=== PATIENT | female | born 1960 | race Caucasian/White ===

== ENCOUNTER 2022-07-30 16:09 | Emergency (ER) | payer OTHER ==
[~2022-07-30] VITALS: Ht 157.5 cm; Wt 72.6 kg
[2022-07-30 16:13] VITALS: BP 250/123
--- NOTE | 2022-07-30 16:17 | NUR ---
61/F BIBA FROM DIALYSIS CENTER C/O ELEVATED BP OF 280 DURING DIALYSIS ACCOMPANIED BY VOMITING AND HEADACHE. PT NOW STATES NO LONGER HAS HEADACHE. PT GIVEN CLONIDINE 0.2 MG PO AT DIALYSIS CENTER AND VOMITED SOON AFTER. PT ABORTED DIALYSIS. ON WELCOME CENTER AGENT, AAO4. PMH: STAGE 5 KIDNEY DISEASE, DM, HTN, DIALYSIS (,)
--- NOTE | 2022-07-30 16:17 | NUR ---
PT BIBA ALS TO BED 9.
--- NOTE | 2022-07-30 16:38 | NUR ---
BLOOD DRAWN BY HAND CARVER
[2022-07-30] MEDS ORDERED: LABETALOL 20 MG/4 ML VIAL IVP ONE ×2 (16:40→17:55)
[2022-07-30 16:42] LABS: BASOPHILS % (AUTO) 0.8 % (0.0-2.0); EOSINOPHILS # (AUTO) 0.3 K/uL (0-0.4); EOSINOPHILS % (AUTO) 4.6 % (0.0-4.0); HEMATOCRIT 31.5 % (36-48); HEMOGLOBIN 10.9 g/dL (12.0-16.0); LYMPHOCYTES # (AUTO) 1.6 K/uL (2.5-16.5); LYMPHOCYTES % (AUTO) 27.5 % (20.5-51.1); MEAN CORPUSCULAR HEMOGLOBIN 33 pg (27-31); MEAN CORPUSCULAR HGB CONC 35 g/dL (33-37); MEAN CORPUSCULAR VOLUME 96.5 fL (80-94); MONOCYTES # (AUTO) 0.5 K/uL (0.8-1.0); MONOCYTES % (AUTO) 9.1 % (1.7-9.3); NEUTROPHILS # (AUTO) 3.3 K/uL (1.8-7.7); PLATELET COUNT (AUTO) 209 K/uL (140-450); RED BLOOD CELL COUNT(AUTO) 3.26 MIL/uL (4.20-5.40); RED CELL DISTRIBUTION WIDTH 13.2 % (11.6-13.7); WHITE BLOOD COUNT (AUTO) 5.7 K/uL (4.8-10.8)
--- NOTE | 2022-07-30 16:48 | NUR ---
XR AT BEDSIDE
--- NOTE | 2022-07-30 16:48 | NUR ---
IV ESTABLISHED MS SQL DEVELOPER BY EMS TO LEFT HAND WITH 20G.
[2022-07-30 17:07] LABS: ALBUMIN 3.9 g/dL (3.4-5.0); ANION GAP 12.2 (8-16); CREATININE 3.8 mg/dL (0.6-1.3); POTASSIUM 4.2 mmol/L (3.5-5.1); TOTAL BILIRUBIN 0.3 mg/dL (0.0-1.0)
[2022-07-30 17:12] LABS: MAGNESIUM 2.4 mg/dL (1.8-2.4)
[2022-07-30 17:45] LABS: PROTHROMBIN TIME 10.6 secs (10.8-13.4)
[2022-07-30 18:45] VITALS: BP 194/89
--- NOTE | 2022-07-30 18:50 | NUR ---
Patient discharged with v/s stable. Written and verbal after care instructions given and explained. Patient verbalized understanding. Ambulatory with steady gait. All questions addressed prior to discharge. Advised to follow up with PMD.
== END 2022-07-30 18:50 | disposition home or self-care (01) ==
LOC: MED 16:09
DX: I12.0 Hypertensive chronic kidney disease with stage 5 chronic kidney disease or end stage renal disease (principal); E11.22 Type 2 diabetes mellitus with diabetic chronic kidney disease; N18.6 End stage renal disease; R51.9 Headache, unspecified; Z99.2 Dependence on renal dialysis; Z20.822 Contact with and (suspected) exposure to COVID-19; Z98.890 Other specified postprocedural states
CPT/HCPCS: 36415; 71045; 80053; 83735; 83880; 84484; 85025; 85610; 87426; 93005; 96374; 96375; 99285; J3490; Q0092; 96376

== ENCOUNTER 2022-08-18 11:33 | Inpatient (IN) | payer OTHER ==
[~2022-08-18] VITALS: Ht 142.2 cm; Wt 61.2 kg
[2022-08-18 11:53] VITALS: BP 204/120
--- NOTE | 2022-08-18 12:04 | NUR ---
PATIENT W/C ASSISTED TO BED 6
[2022-08-18] MEDS ORDERED: ASPIRIN 325 MG TAB PO ONE (12:15)
[2022-08-18] MEDS ORDERED: NITROGLYCERIN 0.4 MG TAB SL ONE (12:15)
--- NOTE | 2022-08-18 12:20 | NUR ---
61 y/o male bib daughter for chest pain x 1 week. Per patient, she has had this chest pain intermittently for a week. Pain increased today accompanied with SOB, Nausea and Vomiting today. Patient has a Dialysis Cath to right upper chest. Medical History: HTN, DM, DIALYSIS (T,) NKDA
[2022-08-18 13:15] LABS: BASOPHILS % (AUTO) 0.2 % (0.0-2.0); EOSINOPHILS % (AUTO) 0.2 % (0.0-4.0); HEMOGLOBIN 10.7 g/dL (12.0-16.0); LYMPHOCYTES # (AUTO) 2.3 K/uL (2.5-16.5); LYMPHOCYTES % (AUTO) 15.4 % (20.5-51.1); MEAN CORPUSCULAR HEMOGLOBIN 34 pg (27-31); MEAN CORPUSCULAR HGB CONC 34 g/dL (33-37); MEAN CORPUSCULAR VOLUME 98.3 fL (80-94); MONOCYTES # (AUTO) 1.2 K/uL (0.8-1.0); MONOCYTES % (AUTO) 7.7 % (1.7-9.3); NEUTROPHILS # (AUTO) 11.6 K/uL (1.8-7.7); NEUTROPHILS % (AUTO) 76.5 % (42.2-75.2); PLATELET COUNT (AUTO) 338 K/uL (140-450); RED BLOOD CELL COUNT(AUTO) 3.16 MIL/uL (4.20-5.40); RED CELL DISTRIBUTION WIDTH 13.5 % (11.6-13.7); WHITE BLOOD COUNT (AUTO) 15.2 K/uL (4.8-10.8)
--- NOTE | 2022-08-18 13:22 | NUR ---
Dr. Hodgson evaluating patient at bedside.
[2022-08-18 13:42] LABS: ALBUMIN 3.8 g/dL (3.4-5.0); ANION GAP 20.9 (8-16); CARBON DIOXIDE 19.3 mmol/L (21-32); POTASSIUM 5.2 mmol/L (3.5-5.1); TOTAL BILIRUBIN 0.6 mg/dL (0.0-1.0)
[2022-08-18 13:52] LABS: CREATININE 7.2 mg/dL (0.6-1.3)
[2022-08-18 14:01] LABS: PROTHROMBIN TIME 10.3 secs (10.8-13.4)
[2022-08-18] MEDS ORDERED: NITROGLYCERIN 2% 1 GM PKT TP ONE (14:20)
[2022-08-18] MEDS ORDERED: ASPI-1749 PO (14:28)
[2022-08-18] MEDS ORDERED: INSU-1343 SQ (14:28)
[2022-08-18] MEDS ORDERED: NIFE30TE5 PO (14:28)
--- NOTE | 2022-08-18 14:28 | NUR ---
Med rec complete.
[2022-08-18] MEDS ORDERED: ZOLPIDEM 10 MG TAB PO PRN (15:10)
[2022-08-18] MEDS ORDERED: ONDANSETRON 4 MG/2 ML VIAL IVP PRN (15:10)
[2022-08-18] MEDS ORDERED: LORazepam 2 MG/ML VIAL IVP PRN (15:10)
[2022-08-18] MEDS ORDERED: DOCUSATE SODIUM 100 MG GELCAP PO PRN (15:10)
[2022-08-18] MEDS ORDERED: MAG SULF 2000 MG/WATER PREMIX 50 ML IV PRN (15:10)
[2022-08-18] MEDS ORDERED: MORPHINE SULFATE 2 MG/ML SYR IVP PRN (15:10)
[2022-08-18] MEDS ORDERED: DEXTROSE 50% 50 ML SYR IVP PRN (15:10)
[2022-08-18] MEDS ORDERED: PIPERACILLIN/TAZOBACTAM 2.25 GM in DEXTROSE 5% 50 ML IV SCH (15:30)
[2022-08-18] MEDS ORDERED: SODIUM ZIRCONIUM CYCLOSILICATE 10 GM POWD.PACK PO SCH (15:30)
--- NOTE | 2022-08-18 15:59 | NUR ---
Lab at bedside
[2022-08-18] MEDS ORDERED: PIPERACILLIN/TAZOBACTAM 2.25 GM VIAL IV ONE (16:22)
[2022-08-18] MEDS: BLOOD GLUCOSE MONITORING 1 DEV DEV FS SCH ×2 (16:54→21:14)
[2022-08-18] MEDS: ACETAMINOPHEN 325 MG TAB PO PRN (17:14)
--- NOTE | 2022-08-18 17:14 | NUR ---
PATIENT C/O 6/10 BACK PAIN, PATIENT REFUSED MORPHINE, MEDICATED WITH TYLENOL PER PRN ORDER.
--- NOTE | 2022-08-18 17:46 | NUR ---
Patient was offered her dinner tray. Patient is sitting up eating dinner.
--- NOTE | 2022-08-18 18:30 | NUR ---
Dr. Franklin, admitting doctor, evaluating patient at bedside.
--- NOTE | 2022-08-18 19:20 | NUR ---
Pt report given to GABBIE Mehta. Transfer of care at this time.
--- NOTE | 2022-08-18 19:30 | NUR ---
RESTING QUIETLY IN BED, NAD. CM = SR WITHOUT ECTOPY. PT DENIES PAIN OR DISCOMFORT AT THIS TIME
--- NOTE | 2022-08-18 20:28 | NUR ---
REPORT CALLED TO
--- NOTE | 2022-08-18 20:30 | NUR ---
TO 105A VIA GURNEY, ATTACHED TO CM ACCOMPANIED BY RN AND ERT
[2022-08-18 20:40] VITALS: BP 208/96
--- NOTE | 2022-08-18 20:40 | NUR ---
Patient's Plan of Care was discussed and reviewed with POLYSOMNOGRAPHIC TECHNICIAN: AVINASH BEACH
--- NOTE | 2022-08-18 20:40 | NUR ---
PATIENT ARRIVED VIA GURNEY ON OXYGEN X 3 LITERS FOR SOB. PATIENT COMPLAINED OF PAIN TO CHEST AND BACK. THE PAIN WAS DESCRIBED PRESSURED AND SHARP CHEST PAIN. CHARGE NURSE AND PRINTING TABLE WORKER WERE NOTIFIED. MD WAS NOTIFIED AND NEW ORDERS FOR MEDICATION WAS MADE. MEDICATIONS WERE VERIFIED AND GIVEN. NURSING WILL MONITOR FOR EFFECTIVENESS. [email or web address]
[2022-08-18] MEDS: NIFEdipine 10 MG CAPLF PO SCH (21:00)
[2022-08-18] MEDS: INSULIN LISPRO SLIDING SCALE 100 UNITS/ML VIAL SUBQ PRN (21:15)
--- NOTE | 2022-08-18 21:26 | NUR ---
CHARGE NURSE WAS NOTIFIED OF PATIENT BLOOD PRESSURE AT 203/90 THE RETAKEN 2 MINUTES AND 208/96. INSURANCE SALES EXECUTIVE MD WAS NOTIFIED AND NEW ORDERS TO STABILIZE BLOOD PRESSURE AND PAIN. CARE TRANSITION MGR WILL NOTIFIED THE RECYCLABLE MATERIALS SORTER FOR ORDERS TO DIALYSIS BECAUSE TODAY SHE WAS DUE. [email or web address]
[2022-08-18] MEDS: NITROGLYCERIN 0.4 MG TAB SL PRN ×2 (21:41→21:53)
--- NOTE | 2022-08-18 22:53 | NUR ---
PATIENT WAS TRANSFERRED TO [facility] FOR DIALYSIS ACCESS. ORDERS FOR HEMODIALYSIS WAS PLACED. CONSENT WAS SIGNED BY PATIENT FOR DIALYSIS. [email or web address]
[2022-08-19] VITALS (7 sets, daily range): BP systolic 149–207; BP diastolic 55–94
--- NOTE | 2022-08-19 | NUR ---
ZOSYN NOT ADMINISTERED PATIENT HAS ONGOING DIALYSIS.
--- NOTE | 2022-08-19 01:00 | NUR ---
PATIENT WAS ABLE TO RECEIVE HER MIDNIGHT DOSAGE OF ANTIBIOTICS BECAUSE DIALYSIS IS STILL GOING. [email or web address]
[2022-08-19] MEDS: ACETAMINOPHEN 325 MG TAB PO PRN ×2 (01:24→06:20)
--- NOTE | 2022-08-19 04:34 | NUR ---
PATIENT WAS ABLE TO SLEEP DURING THE NIGHT BUT BLOOD PRESSURE FOR 0400 WAS STILL NOTED 207/89 HR 89. NURSING WAS ABLE TO GIVE PRN. [email or web address]
[2022-08-19] MEDS ORDERED: PIPERACILLIN/TAZOBACTAM 2.25 GM VIAL IV ONE (04:49)
[2022-08-19] MEDS: hydrALAZINE 20 MG/ML VIAL IVP PRN ×2 (04:55→13:49)
[2022-08-19] MEDS: PIPERACILLIN/TAZOBACTAM 2.25 GM in DEXTROSE 5% 50 ML IV SCH ×5 (05:11→18:46)
[2022-08-19] MEDS ORDERED: POTASSIUM CHLORIDE 10 MEQ TABER PO PRN (06:00)
[2022-08-19] MEDS: BLOOD GLUCOSE MONITORING 1 DEV DEV FS SCH ×4 (06:41→20:58)
--- NOTE | 2022-08-19 07:05 | NUR ---
ENDORSED CARE TO MEAGHAN CARTWRIGHT, PATIENT WAS STABLE AT THIS TIME. [email or web address]
--- NOTE | 2022-08-19 07:05 | NUR ---
RECEIVED REPORT FROM CERTIFIED ACTIVITIES DIRECTOR NURSE FOR CONTINUITY OF CARE. PT STABLE AT THIS TIME.
[2022-08-19 07:21] LABS: BASOPHILS % (AUTO) 0.3 % (0.0-2.0); EOSINOPHILS % (AUTO) 0.2 % (0.0-4.0); HEMATOCRIT 28.4 % (36-48); HEMOGLOBIN 9.7 g/dL (12.0-16.0); LYMPHOCYTES # (AUTO) 1.1 K/uL (2.5-16.5); LYMPHOCYTES % (AUTO) 16.5 % (20.5-51.1); MEAN CORPUSCULAR HEMOGLOBIN 34 pg (27-31); MEAN CORPUSCULAR HGB CONC 34 g/dL (33-37); MEAN CORPUSCULAR VOLUME 98.5 fL (80-94); MONOCYTES # (AUTO) 0.6 K/uL (0.8-1.0); MONOCYTES % (AUTO) 9.2 % (1.7-9.3); NEUTROPHILS % (AUTO) 73.8 % (42.2-75.2); PLATELET COUNT (AUTO) 247 K/uL (140-450); RED BLOOD CELL COUNT(AUTO) 2.88 MIL/uL (4.20-5.40); RED CELL DISTRIBUTION WIDTH 13.6 % (11.6-13.7); WHITE BLOOD COUNT (AUTO) 6.8 K/uL (4.8-10.8)
[2022-08-19 07:43] LABS: ANION GAP 15.1 (8-16); CARBON DIOXIDE 27.2 mmol/L (21-32); POTASSIUM 4.3 mmol/L (3.5-5.1)
[2022-08-19 08:24] LABS: CREATININE 4.2 mg/dL (0.6-1.3)
[2022-08-19] MEDS ORDERED: ASPIRIN 81 MG TAB.CHEW PO SCH (09:00)
[2022-08-19] MEDS: NIFEdipine 10 MG CAPLF PO SCH (09:06)
--- NOTE | 2022-08-19 09:38 | NUR ---
PATIENT HAS BEEN SCREENED AND CATEGORIZED MODERATE NUTRITION RISK. PATIENT WILL BE SEEN WITHIN 3-5 DAYS OF ADMISSION. REVIEWED BY BRIDGET BETANCOURT RD
--- NOTE | 2022-08-19 11:19 | NUR ---
DC PLANNIN YRS OLD FEMALE PATIENT WAS ADMITTED FROM HOME WITH A DX OF CHEST PAIN. PATIENT HAS A HX OF ESRD ON HD TTHS, HTN, AND DM. TROP 172, 273, WBC 15.2 B/C 50/4.2 CXR SHOWED CARDIOMEGALY WITH PULMONARY VASCULAR CONGESTION AND INTERSTITIAL EDEMA. RAPID COVID TEST NEGATIVE. ADMINISTERED IV ABX ZOSYN AND CONTINUED HOME MEDS. CONSULTED WITH CARDIO AND NEPHRO. PER ATTENDING PT IS STABLE FOR TRANSFER TO [facility]. FAXED THE REQUEST TO [phone]. CM TO FOLLOW
[2022-08-19] MEDS ORDERED: hydrALAZINE 20 MG/ML VIAL IVP PRN (15:15)
[2022-08-19] MEDS ORDERED: ATORVASTATIN 80 MG TAB PO SCH (15:15)
[2022-08-19] MEDS ORDERED: HEPARIN PER PHARMACY MC PRN (15:15)
[2022-08-19] MEDS ORDERED: carvediloL 12.5 MG TAB ONE (15:38)
[2022-08-19] MEDS ORDERED: carvediloL 12.5 MG TAB PO SCH ×2 (16:00→21:00)
[2022-08-19] MEDS ORDERED: hePARIN / DEXT 5% PREMIX 250 ML IV SCH (16:00)
--- NOTE | 2022-08-19 18:10 | NUR ---
[facility] CALLED TO GIVE US BED NUMBER, ACCEPTING PHYSICIAN, TIME OF TRANSPORT AND NUMBER TO CALL REPORT TO. NOTIFIED FAMILY OF TIME AND LOCATION THEIR LOVED ONE WILL BE TRANSFERRED TO.
--- NOTE | 2022-08-19 19:15 | NUR ---
ENDORSED PATIENT TO BEDSPREAD CUTTER HAND NURSE FOR CONTINUITY OF CARE. PT STABLE AT THIS TIME.
--- NOTE | 2022-08-19 19:30 | NUR ---
RECEIVED REPORT FROM DAY SHIFT NURSE FOR CONTINUITY OF CARE. PT A/A/O X 4, MAURITIAN SPEAKING, RESTING IN BED. FAMILY AT BEDSIDE. ON 3L NC, BREATHING EVEN AND UNLABORED.NO S/SX OF DISTRESS NOTED. IV ON L AC G20,R FA G24. HEPARIN RUNNING ON L AC AT 700UNITS/HR ALL PRECAUTIONS IN PLACE. CALL LIGHT WITHIN REACH. WILL CONTINUE TO MONITOR
[2022-08-19] MEDS: INSULIN LISPRO SLIDING SCALE 100 UNITS/ML VIAL SUBQ PRN (20:59)
--- NOTE | 2022-08-19 22:00 | NUR ---
REPORT GIVEN TO RUDDY CARTWRIGHT IN [facility]. PT IS GOING TO ROOM 322.
--- NOTE | 2022-08-19 22:40 | NUR ---
PT WAS PICKED UP BY [facility]. PT IS STABLE. NO S/SX OF DISTRESS UPON DISCHARGE.
[2022-08-20] MEDS ORDERED: NIFEdipine 30 MG TABER PO SCH (09:00)
== END 2022-08-19 22:40 | disposition short-term general hospital (02) | DRG 682 ==
LOC: MED 11:33 → MTU 15:06
PROVIDERS: ADMIT Family Medicine; ATTEND Family Medicine
PROC: 5A1D70Z Performance of Urinary Filtration, Intermittent, Less than 6 Hours Per Day (ICD-10-PCS; principal; 2022-08-18)
PROC: 5A1D70Z Performance of Urinary Filtration, Intermittent, Less than 6 Hours Per Day (ICD-10-PCS; 2022-08-19)
DX: I12.0 Hypertensive chronic kidney disease with stage 5 chronic kidney disease or end stage renal disease (principal); I21.A1 Myocardial infarction type 2; N17.0 Acute kidney failure with tubular necrosis; N18.6 End stage renal disease; I16.1 Hypertensive emergency; E87.1 Hypo-osmolality and hyponatremia; E11.22 Type 2 diabetes mellitus with diabetic chronic kidney disease; D53.9 Nutritional anemia, unspecified; E83.51 Hypocalcemia; Z20.822 Contact with and (suspected) exposure to COVID-19; E87.5 Hyperkalemia; D72.829 Elevated white blood cell count, unspecified; Z79.82 Long term (current) use of aspirin
CPT/HCPCS: 36415; 71045; 80048; 80053; 82948; 83735; 83880; 84484; 85025; 85610; 85730; 87040; 87081; 90935; 96365; 99291; J0360; J1644; J1815; J2270; J2405; J2543; J7060; Q0092

== ENCOUNTER 2022-12-23 20:45 | Emergency (ER) | payer OTHER ==
[~2022-12-23] VITALS: Ht 160 cm; Wt 58.1 kg
[~2022-12-23 20:45] MED LIST: ASPI-1749 PO; INSU-1343 SQ; NIFE30TE5 PO
[2022-12-23 20:57] VITALS: BP 132/104; PULSE 113; RESP 18; TEMP 97.4; O2SAT 78
--- NOTE | 2022-12-23 20:57 | NUR ---
Pt to bed 10
--- NOTE | 2022-12-23 21:00 | NUR ---
O2 sat in the 60s in room air, pt placed on 15L o2 via NRB and RT by bedside at this time.
--- NOTE | 2022-12-23 21:10 | NUR ---
ERMD by bedside at this time evaluating patient
--- NOTE | 2022-12-23 21:15 | NUR ---
Pt placed on Bipap by RT
[2022-12-23] MEDS ORDERED: FUROSEMIDE 100 MG/10 ML VIAL IVP ONE (21:20)
[2022-12-23] MEDS ORDERED: ASPIRIN 325 MG TAB PO ONE (21:25)
[2022-12-23 21:32] VITALS: BP 151/70; PULSE 98; RESP 26; O2SAT 100; O2SAT 99
[2022-12-23 21:43] LABS: HEMATOCRIT 27.1 % (36-48); HEMOGLOBIN 9.5 g/dL (12.0-16.0); MEAN CORPUSCULAR HEMOGLOBIN 33 pg (27-31); MEAN CORPUSCULAR HGB CONC 35 g/dL (33-37); MEAN CORPUSCULAR VOLUME 94.4 fL (80-94); PLATELET COUNT (AUTO) 211 K/uL (140-450); RED BLOOD CELL COUNT(AUTO) 2.87 MIL/uL (4.20-5.40); RED CELL DISTRIBUTION WIDTH 13.6 % (11.6-13.7)
[2022-12-23 21:46] LABS: MAGNESIUM 2.1 mg/dL (1.8-2.4); PHOSPHORUS 4.4 mg/dL (2.5-4.9)
[2022-12-23 21:54] LABS: APPEARANCE,URINE CLEAR (CLEAR); BILIRUBIN,URINE NEGATIVE (NEGATIVE); BLOOD, URINE TRACE-I (NEGATIVE); COLOR,URINE YELLOW (YELLOW); LEUKOCYTE ESTERASE ,URINE NEGATIVE (NEGATIVE); NITRITE, URINE NEGATIVE (NEGATIVE); PH,URINE 7.5 (5.0-9.0); UGLUCOSE 1+ (NEGATIVE)
[2022-12-23] MEDS ORDERED: DOXYCYCLINE 100 MG in DEXTROSE 5% 100 ML IV ONE (22:00)
[2022-12-23 22:01] LABS: BASOPHILS % (MANUAL) 0 % (0-2); EOSINOPHILS % (MANUAL) 5 % (0-4); LYMPHOCYTES % (MANUAL) 27 % (20-46); MONOCYTES % (MANUAL) 4 % (5-12)
[2022-12-23] MEDS ORDERED: cefTRIAXone 1,000 MG VIAL ONE (22:04)
[2022-12-23] MEDS ORDERED: DOXYCYCLINE 100 MG VIAL IV ONE (22:36)
[2022-12-23 22:44] LABS: ALBUMIN 3.2 g/dL (3.4-5.0); ANION GAP 15.6 (8-16); CARBON DIOXIDE 27.2 mmol/L (21-32); POTASSIUM 4.8 mmol/L (3.5-5.1); TOTAL BILIRUBIN 0.3 mg/dL (0.0-1.0)
[2022-12-23 22:46] LABS: CREATININE 4.8 mg/dL (0.6-1.3)
[2022-12-23 23:12] VITALS: BP 225/86; PULSE 88; O2SAT 99
--- NOTE | 2022-12-23 23:35 | NUR ---
Pt with episodes of muscle spasms on left leg, per pt, new onset. denies any pain. ERMD was notified.
--- NOTE | 2022-12-23 23:45 | NUR ---
DR. TREJO CALLS BACK TO SPEAK WITH DR. COATES
[2022-12-23] MEDS ORDERED: NITROGLYCERIN 50 MG/D5W PREMIX 250 ML IV ONE (23:50)
--- NOTE | 2022-12-23 23:58 | NUR ---
WEANED PT OFF FROM BiPAP TO 2L NC. SPO2 98%. NO INCREASE OF WOB AT THIS TIME. WILL CONTINUE TO MONITOR PT.
[2022-12-24] MEDS ORDERED: hydrALAZINE 20 MG/ML VIAL IVP ONE ×2 (01:05→03:40)
[2022-12-24] MEDS ORDERED: NIFEdipine 30 MG TABER PO ONE (01:05)
--- NOTE | 2022-12-24 01:35 | NUR ---
Spoke with Elzbieta CARTWRIGHT from [facility] and updated [facility] regarding patients vitals.
--- NOTE | 2022-12-24 02:29 | NUR ---
Pt c/o 5/10 left leg pain that per pt is due to muscle spasms, ERMD was made aware.
[2022-12-24] MEDS ORDERED: MORPHINE SULFATE 4 MG/ML SYR IVP ONE (02:30)
--- NOTE | 2022-12-24 02:38 | NUR ---
Pt refused ordered morphine, ERMD made aware
--- NOTE | 2022-12-24 03:42 | NUR ---
CALL BACK FROM [facility] WITH TRANSFER INFORMATION. PT GOING TO [facility], ROOM 545. REPORT CALL TO GILBERTO CARTWRIGHT AT [phone]. TRANSPORT WILL BE HERE AT 0430, [facility]
--- NOTE | 2022-12-24 03:54 | NUR ---
Patient to be transferred to [facility] Room 545. Receiving facility has accepting physician and available space. ER physician has signed transfer form. Patient or responsible constitution party has agreed to transfer and signed form. Patient belongings inventoried and will be sent with patient. Copy of nursing notes, lab reports, EKG, Physicians Orders and X-rays to be sent with patient. Report called to Billie CARTWRIGHT at receiving facility. [facility] ambulance service has been called for transfer. ETA is 0430.
[2022-12-24 04:37] VITALS: BP 159/66; PULSE 108; RESP 11; TEMP 98.2; O2SAT 100
--- NOTE | 2022-12-24 04:37 | NUR ---
Patient picked up by can repairer and EMT from [facility] for transfer of care to [facility].
== END 2022-12-24 04:37 | disposition short-term general hospital (02) ==
LOC: MED 20:45
DX: A41.9 Sepsis, unspecified organism (principal); Z20.822 Contact with and (suspected) exposure to COVID-19; R65.20 Severe sepsis without septic shock; J96.01 Acute respiratory failure with hypoxia; I13.0 Hypertensive heart and chronic kidney disease with heart failure and stage 1 through stage 4 chronic kidney disease, or unspecified chronic kidney disease; I50.9 Heart failure, unspecified; E11.22 Type 2 diabetes mellitus with diabetic chronic kidney disease; N18.9 Chronic kidney disease, unspecified; I16.0 Hypertensive urgency; E87.1 Hypo-osmolality and hyponatremia; E87.20 Acidosis, unspecified; R77.8 Other specified abnormalities of plasma proteins; Z79.4 Long term (current) use of insulin; Z79.899 Other long term (current) drug therapy
CPT/HCPCS: 36415; 36600; 71045; 80053; 81003; 82803; 83605; 83735; 83880; 84100; 84484; 85025; 87040; 87426; 87804; 93005; 94660; 96365; 96366; 96367; 96375; 96376; 99291; J0360; J0696; J1940; J3490; J7060; J2270

== ENCOUNTER 2022-12-28 18:18 | Inpatient (IN) | payer OTHER ==
[~2022-12-28] VITALS: Ht 157.5 cm; Wt 63.1 kg
--- NOTE | 2022-12-28 18:30 | NUR ---
PATIENT WHEELCHAIR ASSIST TO ER BED 05
[2022-12-28 18:31] VITALS: BP 210/69; PULSE 72; RESP 30; TEMP 98; O2SAT 88
[2022-12-28 18:46] VITALS: PULSE 72; RESP 36; O2SAT 96
--- NOTE | 2022-12-28 18:46 | NUR ---
62 YO F BIB DAUGHTER, PT PRESENTS W/SOB TODAY. NAUSEA PRESENT, NO VOMITING. PT STATES SHE WAS SEEN HERE IN ED 2DAYS AGO AND TRANSFERED TO [place] FOR FUTHER CARE ON BIPAP. SAFETY MAINTAINED. HX: CHF, diabetes, hypertension, ESRD
[2022-12-28] MEDS ORDERED: ONDANSETRON 4 MG/2 ML VIAL IVP ONE (19:05)
[2022-12-28] MEDS ORDERED: NITROGLYCERIN 0.4 MG TAB SL ONE (19:10)
[2022-12-28 19:16] LABS: BASOPHILS % (AUTO) 0.6 % (0.0-2.0); EOSINOPHILS # (AUTO) 0.2 K/uL (0-0.4); EOSINOPHILS % (AUTO) 2.2 % (0.0-4.0); HEMATOCRIT 25.2 % (36-48); HEMOGLOBIN 8.9 g/dL (12.0-16.0); LYMPHOCYTES # (AUTO) 1.6 K/uL (2.5-16.5); LYMPHOCYTES % (AUTO) 21.9 % (20.5-51.1); MEAN CORPUSCULAR HEMOGLOBIN 33 pg (27-31); MEAN CORPUSCULAR HGB CONC 35 g/dL (33-37); MEAN CORPUSCULAR VOLUME 94.7 fL (80-94); MONOCYTES # (AUTO) 0.6 K/uL (0.8-1.0); MONOCYTES % (AUTO) 8.7 % (1.7-9.3); NEUTROPHILS % (AUTO) 66.6 % (42.2-75.2); PLATELET COUNT (AUTO) 273 K/uL (140-450); RED BLOOD CELL COUNT(AUTO) 2.66 MIL/uL (4.20-5.40); WHITE BLOOD COUNT (AUTO) 7.5 K/uL (4.8-10.8)
--- NOTE | 2022-12-28 19:19 | NUR ---
NITRO SUBLINGUAL GIVEN, NO VIAL AVAILABLE IN ED, PICKED UP NITRO FROM ICU. UNABLE TO SCAN VIAL.
--- NOTE | 2022-12-28 19:24 | NUR ---
SECOND NITRO SUBLINGUAL GIVEN. UNABLE TO SCAN, NITRO PICKED UP FROM ICU.
--- NOTE | 2022-12-28 19:26 | NUR ---
TRANSFER OF CARE TO JAYME CARTWRIGHT
--- NOTE | 2022-12-28 19:29 | NUR ---
Pt denies CP after Nitroglycerin x2 sublingual tablets. Appears in no acute distress. Daughter is at bedside.
[2022-12-28] MEDS ORDERED: NITROGLYCERIN 50 MG/D5W PREMIX 250 ML IV ONE (20:00)
--- NOTE | 2022-12-28 20:00 | NUR ---
MD Campbell at bedside re-evaluating pt; MD Campbell made aware of pt c/o nausea still and elevated BP (SBP 200's). New orders in place.
[2022-12-28 20:12] LABS: ALBUMIN 3.2 g/dL (3.4-5.0); ANION GAP 17.6 (8-16); CARBON DIOXIDE 22.2 mmol/L (21-32); POTASSIUM 5.8 mmol/L (3.5-5.1); TOTAL BILIRUBIN 0.3 mg/dL (0.0-1.0)
--- NOTE | 2022-12-28 20:20 | NUR ---
Nitroglycerin drip started as ordered by MD Campbell; Start dose @ 5 mcg/min; to titrate as ordered per MD orders/protocol.
[2022-12-28 20:33] LABS: CREATININE 7.2 mg/dL (0.6-1.3)
--- NOTE | 2022-12-28 22:08 | NUR ---
MD Leyva at bedside re-assessing pt. MD Blancas made aware of SBP in the 190's/200's and is currently receiving max dose for Nitroglycerin drip.
[2022-12-28 22:15] VITALS: PULSE 67; O2SAT 96
--- NOTE | 2022-12-28 22:24 | NUR ---
Per MD Leyva, pt to be admitted here in ICU; pt will not be transferred to [place].
[2022-12-28] MEDS ORDERED: ONDANSETRON 4 MG/2 ML VIAL IVP PRN (22:25)
[2022-12-28] MEDS ORDERED: LORazepam 2 MG/ML VIAL IVP PRN (22:25)
[2022-12-28] MEDS ORDERED: HYDROcodone/APAP 5/325 MG 1 TAB TAB PO PRN (22:25)
[2022-12-28] MEDS ORDERED: MORPHINE SULFATE 2 MG/ML SYR IVP PRN (22:25)
[2022-12-28] MEDS ORDERED: hydrALAZINE 20 MG/ML VIAL IVP STA (22:28)
--- NOTE | 2022-12-28 22:36 | NUR ---
Hydralazine 10 mg via IVP given as ordered for bp management; vs being monitored. Pt denies any CP;SOB at this time. at bedside.
--- NOTE | 2022-12-28 22:50 | NUR ---
RECEIVED CALL FROM JAYME CARTWRIGHT, IN ER. PATIENT WILL BE TRANSFERRING TO ICU BED 5
--- NOTE | 2022-12-28 22:52 | NUR ---
Pt daughter at bedside; will be taking all belongings home with her.
[2022-12-28 23:00] LABS: PROTHROMBIN TIME 10.4 secs (10.8-13.4)
[2022-12-28 23:07] VITALS: PULSE 97; RESP 23; O2SAT 98
--- NOTE | 2022-12-28 23:07 | NUR ---
Patient will be admitted to care of MD Padilla. Admited to ICU. Will go to room ICU5. Report given to GABBIE Cedeño.
--- NOTE | 2022-12-28 23:26 | NUR ---
2318 TRANSFERRED PATIENT TO ICU BED 5 ON BIPAP. SETTINGS 10/ RR 16 FIO2 100%. DR EVANGELISTA CHANGED BIPAP ORDER TO IPAP 10/ RR 12 AND FIO2 IS AT 30%. SATS ARE 100% ON BIPAP. PLACED CALL LIGHT BY PATIENT. NO COMPLICATIONS OCCURRED ON TRANSPORT
--- NOTE | 2022-12-28 23:57 | NUR ---
PHONE CALL RECEIVED FROM RADIOLOGY, PATIENT HAS PENDING ORDER FOR VQ SCAN; TECH WHO WILL BE PERFORMING PROCEDURE IS ON THE WAY NOW TO THE HOSPITAL. PROCEDURE WILL BE PERFORMED AT BEDSIDE
[2022-12-29] VITALS (20 sets, daily range): BP systolic 123–205; BP diastolic 59–92; PULSE 66–101; RESP 14–68; TEMP 97.1–97.9; O2SAT 93–100
--- NOTE | 2022-12-29 00:15 | NUR ---
SUPERVISOR SHIP MAINTENANCE SERVICES ARRIVED AT BEDSIDE TO PERFORM NUCLEAR MEDICINE SCAN
--- NOTE | 2022-12-29 00:29 | NUR ---
0020 PATIENT TAKEN OFF BIPAP TO HAVE A VQ SCAN DONE. PATIENT WANTS TO TAKE A BREAK FROM BIPAP. PLACED PATIENT ON 2LNC. NO SOB NOTED AT THIS TIME.
[2022-12-29] MEDS: IPRATROPIUM 0.02% 0.5 MG/2.5 ML NEBU INH SCH ×4 (01:03→19:00)
[2022-12-29] MEDS: ALBUTEROL 0.083% 2.5 MG/3 ML NEBU INH SCH ×4 (01:04→19:00)
--- NOTE | 2022-12-29 01:34 | NUR ---
0103 HHNTX STARTED AND PLACED PATIENT BACK ON 3LNC. PATIENT DOES NOT NEED BIPAP AT THIS TIME NO SOB NOTED. BREATH SOUNDS ARE CLEAR. BIPAP STANDBY AND CALL LIGHT WITH IN REACH
--- NOTE | 2022-12-29 02:15 | NUR ---
SCD'S APPLIED TO BILATERAL LOWER EXTREMITIES PER MD ORDERS
[2022-12-29] MEDS: NITROGLYCERIN 50 MG/D5W PREMIX 250 ML IV PRN ×2 (05:11→09:46)
--- NOTE | 2022-12-29 05:30 | NUR ---
PATIENT IS MAXED ON NITROGLYCERIN DRIP, ON-CALL CAREER AND GUIDANCE COUNSELOR HAS BEEN PAGED TO OBTAIN NEW ORDERS FOR PATIENT
[2022-12-29 05:31] LABS: BASOPHILS % (AUTO) 0.6 % (0.0-2.0); EOSINOPHILS # (AUTO) 0.1 K/uL (0-0.4); HEMATOCRIT 21.7 % (36-48); HEMOGLOBIN 7.7 g/dL (12.0-16.0); LYMPHOCYTES % (AUTO) 27.4 % (20.5-51.1); MEAN CORPUSCULAR HEMOGLOBIN 33 pg (27-31); MEAN CORPUSCULAR HGB CONC 36 g/dL (33-37); MONOCYTES # (AUTO) 0.7 K/uL (0.8-1.0); MONOCYTES % (AUTO) 10.3 % (1.7-9.3); NEUTROPHILS # (AUTO) 4.3 K/uL (1.8-7.7); NEUTROPHILS % (AUTO) 59.7 % (42.2-75.2); PLATELET COUNT (AUTO) 238 K/uL (140-450); RED BLOOD CELL COUNT(AUTO) 2.31 MIL/uL (4.20-5.40); RED CELL DISTRIBUTION WIDTH 13.9 % (11.6-13.7); WHITE BLOOD COUNT (AUTO) 7.2 K/uL (4.8-10.8)
--- NOTE | 2022-12-29 05:40 | NUR ---
RECEIVED CALL FROM DR. NORRIS, PROVIDED UPDATE REGARDING ELEVATED BLOOD PRESSURE NEW ORDERS RECEIVED FOR LABETOL IV PUSH Q 4HRS.
[2022-12-29] MEDS ORDERED: LABETALOL 20 MG/4 ML VIAL IVP ONE (05:50)
[2022-12-29 06:09] LABS: ALBUMIN 2.9 g/dL (3.4-5.0); ANION GAP 17.1 (8-16); CARBON DIOXIDE 22.9 mmol/L (21-32); CREATININE 7.4 mg/dL (0.6-1.3); MAGNESIUM 2.3 mg/dL (1.8-2.4); TOTAL BILIRUBIN 0.4 mg/dL (0.0-1.0)
--- NOTE | 2022-12-29 07:02 | NUR ---
TRANSFER OF CARE TO DAY SHIFT, ENDORSED PATIENT TO ANGELLA. CALL LIGHT ON BED WITHIN REACH FOR PATENT
[2022-12-29] MEDS: LABETALOL 20 MG/4 ML VIAL IVP PRN ×2 (07:11→14:45)
--- NOTE | 2022-12-29 07:11 | NUR ---
ADMINISTERED LABETALOL PER MD ORDERS
--- NOTE | 2022-12-29 07:30 | NUR ---
Report received from assistant casino shift manager GABBIE Cedeño. Pt is Yolis able to make needs known. Patients primary language is Romansh. Patient has 20G AC with no redness and ecchymosis on insertion site with Nitroglycerin infusing at 200 mcg/min. Lungs are clear to auscultation with 2L on nasal cannula. Abdomen is soft upon palpation. Currently NPO. Patients skin intact with ecchymosis noted on the left AC. SCDs are in place. Patient with no s/sx of pain or discomfort. No acute distress. Will continue to follow plan of care. Addendum: 12/29/22 at 0910 by MARK GRAY RN Patient has Right Triston catheter. Dressing is dry and intact.
[2022-12-29] MEDS ORDERED: SODIUM BICARBONATE 8.4% 50 MEQ in DEXTROSE 5% 1,000 ML IV SCH (08:45)
[2022-12-29] MEDS ORDERED: CALCIUM GLUCONATE 10% 1,000 MG in NACL 0.9% 50 ML IV ONE (08:45)
--- NOTE | 2022-12-29 08:57 | NUR ---
Reached out to Dr. Fisher regarding patients potassium level of 6.0 and Sodium of 122. Per MD Fisher start patient on calcium gluconate, dextrous 50%, and regular insulin. Will continue to follow plan of care.
--- NOTE | 2022-12-29 09:07 | NUR ---
PATIENT HAS BEEN SCREENED AND CATEGORIZED MODERATE NUTRITION RISK. PATIENT WILL BE SEEN WITHIN 3-5 DAYS OF ADMISSION. 12/31/22-01/02/[address]
[2022-12-29] MEDS ORDERED: INSULIN REGULAR, HUMAN 100 UNIT/ML VIAL SUBQ SCH (09:20)
[2022-12-29] MEDS: ASPIRIN 81 MG TAB.CHEW PO SCH (09:22)
[2022-12-29] MEDS ORDERED: ACETAMINOPHEN 325 MG TAB PO PRN (09:25)
[2022-12-29] MEDS ORDERED: POTASSIUM CHLORIDE 10 MEQ TABER PO PRN (09:25)
[2022-12-29] MEDS ORDERED: ALBUTEROL SULFATE/IPRATROPIU 3 ML SOL IH PRN (09:25)
[2022-12-29] MEDS: NACL 0.9% 1,000 ML IV SCH ×2 (09:25→13:19)
[2022-12-29] MEDS ORDERED: HYDROcodone/APAP 7.5/325 MG 1 TAB PO PRN (09:25)
[2022-12-29] MEDS ORDERED: ONDANSETRON 4 MG/2 ML VIAL IVP PRN (09:25)
[2022-12-29] MEDS ORDERED: MAG SULF 2000 MG/WATER PREMIX 50 ML IV PRN (09:25)
[2022-12-29] MEDS ORDERED: SODIUM BICARBONATE 8.4% PFS 50 MEQ/50 ML SYR IVP SCH (09:30)
[2022-12-29] MEDS ORDERED: SODIUM CHLORIDE IV SCH (09:45)
[2022-12-29] MEDS ORDERED: CALCIUM GLUCONATE 1 GM/50 ML IV SCH (09:45)
[2022-12-29] MEDS ORDERED: SODIUM POLYSTYRENE 15 GM/60 ML UDBTL PO SCH (09:45)
--- NOTE | 2022-12-29 09:50 | NUR ---
Greaser Helper Dr. Byrne rounded at patient bedside. Patient is a dialysis patient that needs to get dialyzed. Patient is AOx4 MD explain and made patient aware that she needs to get dialyzed. Per patient she stated "kvng byrne" regarding the dialysis.
[2022-12-29] MEDS ORDERED: DEXTROSE 50% 50 ML SYR IVP ONE (09:55)
--- NOTE | 2022-12-29 10:00 | NUR ---
Dialysis nurse GABBIE Pineda started patient on dialysis. Patients with no acute distress or SOB noted.
[2022-12-29 10:13] LABS: BASOPHILS % (AUTO) 0.2 % (0.0-2.0); EOSINOPHILS # (AUTO) 0.1 K/uL (0-0.4); EOSINOPHILS % (AUTO) 1.8 % (0.0-4.0); HEMOGLOBIN 7.4 g/dL (12.0-16.0); LYMPHOCYTES # (AUTO) 1.3 K/uL (2.5-16.5); MEAN CORPUSCULAR HEMOGLOBIN 33 pg (27-31); MEAN CORPUSCULAR HGB CONC 35 g/dL (33-37); MEAN CORPUSCULAR VOLUME 94.1 fL (80-94); MONOCYTES # (AUTO) 0.7 K/uL (0.8-1.0); MONOCYTES % (AUTO) 10.6 % (1.7-9.3); NEUTROPHILS # (AUTO) 4.5 K/uL (1.8-7.7); NEUTROPHILS % (AUTO) 67.4 % (42.2-75.2); PLATELET COUNT (AUTO) 231 K/uL (140-450); RED BLOOD CELL COUNT(AUTO) 2.23 MIL/uL (4.20-5.40); RED CELL DISTRIBUTION WIDTH 13.6 % (11.6-13.7); WHITE BLOOD COUNT (AUTO) 6.7 K/uL (4.8-10.8)
[2022-12-29 10:17] LABS: ANION GAP 14.8 (8-16); CARBON DIOXIDE 25.1 mmol/L (21-32); POTASSIUM 5.9 mmol/L (3.5-5.1)
--- NOTE | 2022-12-29 10:22 | NUR ---
Abnormal labs: Na 121, K 5.9, BUN 72. Dr. Bullard made aware. Pt. is currently being dialyzed. No new orders received.
--- NOTE | 2022-12-29 10:26 | NUR ---
New Echo-Cardiogram order cancelled by Dr. Safia OSORIO. Pt. had Echo done on 08-19-2022. NO new test needed. See report from 08-19-22 in pt.'s physical chart for details.
[2022-12-29 10:33] LABS: CHOL/HDL RATIO 2.5 (1-4.5); FREE T4 (FREE THYROXINE) 1.25 ng/dL (0.76-1.46); MAGNESIUM 2.3 mg/dL (1.8-2.4); PHOSPHORUS 5.2 mg/dL (2.5-4.9); THYROID STIMULATING HORMONE 2.68 uIU/mL (0.34-3.74)
--- NOTE | 2022-12-29 10:34 | NUR ---
Lab [facility] called regarding patients elevated Troponin Level of 1503. Notified MD Baig regarding troponin levels waiting for reply.
--- NOTE | 2022-12-29 10:40 | NUR ---
MD Lizama reached out regarding troponin levels per "no recs for now."
--- NOTE | 2022-12-29 10:47 | NUR ---
FNS CONSULT HAS BEEN RECEIVED FOR NEW RENAL FAILURE. PATIENT HAS BEEN RE-SCREENED HIGH RISK AND WILL BE SEEN WITHIN 1-2 DAYS OF RECEIVING THE FNS CONSULT. ELVIRA DECKER RD
--- NOTE | 2022-12-29 10:50 | NUR ---
Cee SHARPE and Cesilia SHARPE research program intern rounded at patients bedside. Asked patients questions regarding diet that she has at home. Patient AOx4 able to answer questions.
--- NOTE | 2022-12-29 11:07 | NUR ---
NITRO DRIP STOPPED FOR NOW PER DR. CRUZ, DURING DYALISIS OCCURING NOW. BP. 105/55, HR 72, SPO2 99. DIALYSIS IN PROGRESS WITH RN AT BEDSIDE. PT. WITH NO ACUTE DISTRESS. NO SOB. WILL CONT TO MONITOR.
--- NOTE | 2022-12-29 11:25 | NUR ---
Dr. Fisher rounded at patients bedside. Instructed for patient to have labs drawn after dialysis.
[2022-12-29] MEDS ORDERED: BLOOD GLUCOSE MONITORING 1 DEV DEV FS SCH (11:30)
--- NOTE | 2022-12-29 11:30 | NUR ---
MD Fisher wants labs to be drawn after dialysis, wait to administer NS.
[2022-12-29] MEDS ORDERED: ALBUTEROL SULFATE/IPRATROPIU 3 ML SOL IH SCH (12:00)
[2022-12-29] MEDS ORDERED: DEXTROSE 50% 50 ML SYR IVP PRN (12:10)
[2022-12-29] MEDS ORDERED: INSULIN LISPRO SLIDING SCALE 100 UNITS/ML VIAL SUBQ PRN (12:10)
--- NOTE | 2022-12-29 13:27 | NUR ---
12/29/22 RD INITIAL ASSESSMENT COMPLETED PLEASE REFER TO NUTRITION ASSESSMENT UNDER CARE ACTIVITY FOR ESTIMATED NUTRITIONAL NEEDS. 1. CONTINUE RENAL AND CCHO 60 GRAM DIET TOLERATED 2. RD ENCOURAGES PATIENT TO CONTINUE WITH RENAL DIET AND NUTRITION EDUCATION GIVEN AT THE HOSPITAL ONCE SHE LEAVES 3. RD WILL CONTINUE TO MONITOR NUTRITION RELATED LABS, WEIGHTS, PO INTAKE AND GI ISSUES. 4. RD TO FOLLOW-UP 3-5 DAYS, MODERATE RISK ELVIRA DECKER RD
--- NOTE | 2022-12-29 13:40 | NUR ---
Patients Dialysis ended, patients Vitals are stable. No SOB or acute distress noted. Patient had 3L removed. Dialysis nurse MiriamRN changed patients Triston catheter dressing. Dressing is dry and intact.
[2022-12-29 14:09] LABS: CREATININE 7.8 mg/dL (0.6-1.3)
--- NOTE | 2022-12-29 14:10 | NUR ---
Pt.'s family is requesting pt. to be transferred to [place]. Dr. Bullard notified and order received for pt. to transferred to [facility] Telemetry. Pt. awake and alert. No acute distress. Denies any pain now. Pt. eating lunch now. Called hospital [facility] X [phone] and spoke with Colette. She will initiate transfer process to [place]. Pt. and her daughter at bedside notified.
[2022-12-29 14:23] LABS: BASOPHILS % (AUTO) 0.5 % (0.0-2.0); EOSINOPHILS # (AUTO) 0.1 K/uL (0-0.4); EOSINOPHILS % (AUTO) 1.5 % (0.0-4.0); HEMATOCRIT 22.5 % (36-48); HEMOGLOBIN 7.9 g/dL (12.0-16.0); LYMPHOCYTES # (AUTO) 0.8 K/uL (2.5-16.5); LYMPHOCYTES % (AUTO) 20.5 % (20.5-51.1); MEAN CORPUSCULAR HEMOGLOBIN 33 pg (27-31); MEAN CORPUSCULAR HGB CONC 35 g/dL (33-37); MEAN CORPUSCULAR VOLUME 93.1 fL (80-94); MONOCYTES # (AUTO) 0.4 K/uL (0.8-1.0); MONOCYTES % (AUTO) 10.5 % (1.7-9.3); NEUTROPHILS # (AUTO) 2.6 K/uL (1.8-7.7); PLATELET COUNT (AUTO) 217 K/uL (140-450); RED BLOOD CELL COUNT(AUTO) 2.42 MIL/uL (4.20-5.40); RED CELL DISTRIBUTION WIDTH 13.9 % (11.6-13.7); WHITE BLOOD COUNT (AUTO) 3.8 K/uL (4.8-10.8)
[2022-12-29 14:56] LABS: ALBUMIN 2.9 g/dL (3.4-5.0); ANION GAP 12.6 (8-16); CARBON DIOXIDE 27.9 mmol/L (21-32); CREATININE 3.1 mg/dL (0.6-1.3); POTASSIUM 3.5 mmol/L (3.5-5.1); TOTAL BILIRUBIN 0.4 mg/dL (0.0-1.0)
[2022-12-29] MEDS ORDERED: EPOETIN ALFA-EPBX 10,000 UNITS/ML VIAL IV SCH (15:00)
[2022-12-29] MEDS: ACETAMINOPHEN 325 MG TAB PO PRN ×2 (15:08→20:49)
--- NOTE | 2022-12-29 15:08 | NUR ---
Patient stated to have headache when asked from a scale of 0/10 patient stated to have pain of 2 that is on the back of the head aching, no radiating pain, calming measures state to help her at times. Turned off patients lights to help with relaxation. Administered 650mg of Tylenol PO. Will reassess patients pain in 1 hr.
--- NOTE | 2022-12-29 15:22 | NUR ---
Reached out to Dr. Baig regarding patients elevated blood pressure of 185/72 HR 76. Administered Labetalol 20 minutes prior, patients BP still elevated. Will wait for MD to reply.
--- NOTE | 2022-12-29 15:25 | NUR ---
Dr. Baig rounded at patients bedside. spoked to patient and daughter Jeanine translated for patient. MD put in new orders for patients BP. Will continue to follow plan of care.
[2022-12-29] MEDS ORDERED: hydrALAZINE 20 MG/ML VIAL IVP PRN (16:00)
[2022-12-29] MEDS ORDERED: LABETALOL 20 MG/4 ML VIAL IVP PRN (16:00)
--- NOTE | 2022-12-29 16:03 | NUR ---
Pt. requested DNR information. Pt.'s daughter at bedside. Pt. given information and explanation about DNR status. Pt. is awake and alert - neuro intact. Pt. is able to make decisions as pt. is A/O x 4. Pt. signed the POLST for per policy and requested to be changed to DNR. Dr. Bullard notified and she ordered pt.'s code status changed to DNR. Pt. with no acute distress. NO SOB. Denies pain. Pt.'s daughter at bedside at all times during the conversation.
--- NOTE | 2022-12-29 16:08 | NUR ---
Reassessed patients pain, patient stated to have 0/10 pain. No acute or SOB noted. Will continue to follow plan of care.
[2022-12-29] MEDS ORDERED: CLOPIDOGREL 75 MG TAB PO SCH (16:25)
[2022-12-29] MEDS ORDERED: NIFEdipine 60 MG TABER PO SCH (16:27)
--- NOTE | 2022-12-29 16:30 | NUR ---
Patient AOx4 had a vomiting episode when offered Zofran 4mg/2ml patient refused medication. Patient stated in Slovenian "no la necesito ahorita." Will continue plan of care.
--- NOTE | 2022-12-29 16:35 | NUR ---
DC PLANNING DC PLANNING A 62 YO FEMALE PATIENT ADMITTED TO ICU FOR SOB AND CHEST PAIN ASSOCIATED WITH NAUSEA AND VOMITING.PAST MEDICAL HX OF CHF,HTN,ESRD ON DIALYSIS (T--) AND PRIOR CABG.CXR- CHF WITH BILATERAL PLEURAL EFFUSION.TROPONIN LEVEL IS ELEVATED.PATIENT WAS STARTED ON NTG AND HEPARIN DRIP.PAIN CONTROL MSO4 AND NORCO.CREAT 7.2. [place] CATH WAS INSERTED 12/28 AND WAS DIALYZED TODAY.STABLE FOR TRANSFER TO [facility].SPOKE TO [facility] [place] AND PATIENT WILL BE ASSIGNED CM.CLINICALS FAXED TO [facility].ICU PHONE PHONE NUMBER GIVEN TO [facility] ONCE BED AND ACCEPTING MD ARE PROVIDED.CM TO FOLLOW. Addendum: 12/30/22 at 1540 by VÍCTOR WALLIS DC PLANNING REACHED OUT TO [facility] REGARDING PATIENT'S TRANSFER AND SPOKE WITH DELMA ASTUDILLO . UPDATED PROGRESS NOTES AND LABS FAXED TO [facility].CLINICAL UPDATES PROVIDED BY PHONE TO [facility].PATIENT AND DAUGHTER INITIALLY REFUSED TRANSFER BUT SAID PATIENT NEEDS TO TRANSFER TO [facility] FOR BETTER B/P MANAGEMENT. B/P TODAY STILL ON THE HIGH SIDE SYSTOLIC 200S.DAUGHTER AND PATIENT FINALLY AGREED.ACLS TRANSPORT TO BE ARRANGED BY [facility].BED TO BE GIVEN LATER.AUTH # [id number] PROVIDED BY [facility] FOR PATIENT'S HOSPITAL STAY.
--- NOTE | 2022-12-29 16:46 | NUR ---
Patient Yolis has vital signs of 183/79, HR 85, RR 22, SpO2 100%. Per MD Baig's orders patient has Hydralazine 20mg/ml if SPB >60. Patient refused medication stating "ya me estan dando mucho medicamente para mi cuerpo, ahorita no la quiero" (you guys are giving me too much medication for my body, I don't want it) Daughter Jeanine who speaks Frisian/Paraguayan at bedside when mom stated her comment. Addendum: 12/29/22 at 1723 by MARK GRAY RN SBP >160 Addendum: 12/29/22 at 1724 by MARK GRAY RN "Medicamento"
[2022-12-29] MEDS: BLOOD GLUCOSE MONITORING 1 DEV DEV FS SCH ×2 (16:48→20:45)
--- NOTE | 2022-12-29 19:09 | NUR ---
Transferred patient to Telemetry unit room 113, gave report to nurse YESENIA Gregory also gave report to GABBIE Dobbs. Patients AOx4, no SOB, or acute distress noted when transferring patient. Per patients daughter Nicci "my sister took all her belongings home." Patients cellphone was transferred with her alongside daughter Nicci. Both nurses GABBIE Dobbs and YESENIA Gregory aware that patient refused her BP medications in the ICU.
--- NOTE | 2022-12-29 19:30 | NUR ---
RECEIVED BEDSIDE REPORT FROM YESENIA CEDEÑO FOR CONTINUITY OF CARE. PATIENT IS STABLE IN BED. A&OX4 IRISH SPEAKING ONLY. OFFERED VOYCE BUT PATIENT PREFERS FAMILY MEMBER TO TRANSLATE FOR BASIC NEEDS. DAUGHTER IS CURRENTLY AT BEDSIDE. RESPIRATIONS EVEN AND UNLABORED WITH NO APPARENT S/SX OF ACUTE DISTRESS. IV SITE TO THE 20G SL. PATIENT ALSO HAS RIGHT UPPER CHEST WALL [place]ERETT CATH FOR HD SESSIONS. SKIN IS INTACT. PATIENT IS AMBULATORY AND CONTINENT. POC AND WHITE BOARD COMMUNICATION UPDATED. ALL SAFETY MEASURES IN PLACE. CALL LIGHT WITHIN REACH. ENCOURAGED TO CALL FOR ANY NEEDS/ASSISTANCE. BED IN LOW/LOCKED POSITION. SIDE RAILS X2 UP. WILL CONTINUE TO MONITOR.
--- NOTE | 2022-12-29 19:51 | NUR ---
patient refused BREATHING TREATMENT. PATIENT WAS ON A 4L NASAL CANNULA. PLACED PATIENT ON ROOM AIR, BREATH SOUNDS CLEAR, PATIENT IN NO DISTRESS, SATURATION MAINTAINED AT 97%. RN MADE AWARE, CANNULA ON AT 2L FOR PRN USE. CALL LIGHT WITHIN REACH, PATIENTS DAUGHTER PRESENT. WILL CONTINUE TO MONITOR
[2022-12-29] MEDS: carvediloL 12.5 MG TAB PO SCH (20:47)
[2022-12-29] MEDS: LOSARTAN 50 MG TAB PO SCH (20:47)
[2022-12-29] MEDS ORDERED: NIFEdipine 10 MG CAPLF PO SCH (21:00)
[2022-12-29] MEDS: DOCUSATE SODIUM 100 MG GELCAP PO SCH (21:00)
--- NOTE | 2022-12-29 21:20 | NUR ---
ADMINISTERED SCHEDULED MEDICATIONS PER MD ORDER. TOLERATED WELL. PATIENT C/O OF HEADACHE. ADMINISTERED TYLENOL PRN PER MD ORDER. TOLERATED WELL. PER RT, PATIENT IS OFF NC AND TOLERATING ROOM AIR WELL. CURRENTLY SATURATING AT 95%. RESPIRATIONS EVEN AND UNLABORED WITH NO APPARENT S/SX OF ACUTE DISTRESS. PATIENT CURRENTLY EATING WITH FOOD PROVIDED BY FAMILY. EDUCATED PATIENT WITH THE NEED FOR URINE SAMPLE. URINAL HAT AND SPECIMEN CUP IN BATHROOM. PATIENT VERBALIZED UNDERSTANDING. WHITE COMMUNICATION BOARD UPDATED. ALL SAFETY MEASURES IN PLACE. CALL LIGHT WITHIN REACH. ENCOURAGED TO CALL FOR ANY NEEDS/ASSISTANCE. BED IN LOW/LOCKED POSITION. SIDE RAILS X2 UP. WILL CONTINUE TO MONITOR.
--- NOTE | 2022-12-29 22:17 | NUR ---
Patient's Plan of Care was discussed and reviewed with TOOLING SPECIALIST: WILLIAM SUGGS
--- NOTE | 2022-12-29 23:20 | NUR ---
PATIENT CURRENTLY ASLEEP WITH NO FACIAL GRIMACING. FLACC=0. CHEST IS RISING AND FALLING SYMMETRICALLY. RESPIRATIONS EVEN AND UNLABORED WITH NO APPARENT S/SX OF ACUTE DISTRESS. WHITE COMMUNICATION BOARD UPDATED. ALL SAFETY MEASURES IN PLACE. CALL LIGHT WITHIN REACH. BED IN LOW/LOCKED POSITION. SIDE RAILS X2 UP. WILL CONTINUE TO MONITOR.
[2022-12-30] VITALS: BP 177/64; PULSE 75; PULSE 77; RESP 20; TEMP 98.1; O2SAT 94
[2022-12-30] MEDS: ALBUTEROL 0.083% 2.5 MG/3 ML NEBU INH SCH ×3 (01:00→13:00)
[2022-12-30] MEDS: IPRATROPIUM 0.02% 0.5 MG/2.5 ML NEBU INH SCH ×3 (01:00→13:00)
--- NOTE | 2022-12-30 01:20 | NUR ---
CHECKED PATIENT'S O2 SATURATING AT 95% ON ROOM AIR. PATIENT IS TOLERATING ROOM AIR WELL. DENIES PAIN. RESPIRATIONS EVEN AND UNLABORED WITH NO APPARENT S/SX OF ACUTE DISTRESS. WHITE COMMUNICATION BOARD UPDATED. ALL SAFETY MEASURES IN PLACE. CALL LIGHT WITHIN REACH. BED IN LOW/LOCKED POSITION. SIDE RAILS X2 UP. WILL CONTINUE TO MONITOR.
--- NOTE | 2022-12-30 03:20 | NUR ---
PATIENT'S SATURATION ON ROOM AIR 94% AT THIS TIME. TOLERATING ROOM AIR WELL. DENIES PAIN. RESPIRATIONS EVEN AND UNLABORED WITH NO APPARENT S/SX OF ACUTE DISTRESS. WHITE COMMUNICATION BOARD UPDATED. ALL SAFETY MEASURES IN PLACE. CALL LIGHT WITHIN REACH. ENCOURAGED TO CALL FOR ANY NEEDS/ASSISTANCE. BED IN LOW/LOCKED POSITION. SIDE RAILS X2 UP. WILL CONTINUE TO MONITOR.
[2022-12-30 04:00] VITALS: BP 155/61; PULSE 101; PULSE 77; RESP 18; TEMP 97.8; O2SAT 93
--- NOTE | 2022-12-30 05:25 | NUR ---
ADMINISTERED SCHEDULED MEDICATION PER MD ORDER. TOLERATED WELL. DENIES PAIN. SATURATING ON ROOM AIR AT 94%. RESPIRATIONS EVEN AND UNLABORED WITH NO APPARENT S/SX OF ACUTE DISTRESS. ALL NEEDS MET AT THIS TIME. WHITE COMMUNICATION BOARD UPDATED. ALL SAFETY MEASURES IN PLACE. CALL LIGHT WITHIN REACH. BED IN LOW/LOCKED POSITION. SIDE RAILS X2 UP. WILL CONTINUE TO MONITOR.
[2022-12-30] MEDS: BLOOD GLUCOSE MONITORING 1 DEV DEV FS SCH ×3 (06:30→16:35)
[2022-12-30 06:59] LABS: ANION GAP 12.7 (8-16); CARBON DIOXIDE 28.3 mmol/L (21-32)
[2022-12-30 07:08] LABS: MAGNESIUM 2.1 mg/dL (1.8-2.4); PHOSPHORUS 5.8 mg/dL (2.5-4.9)
--- NOTE | 2022-12-30 07:10 | NUR ---
REPORTED CRITICAL LAB VALUE TO MD. GAVE NO ORDERS AT THIS TIME. PATIENT IS ESRD ON HEMODIALYSIS. MD TO SEE PATIENT. Addendum: 12/30/22 at 2256 by Jorge Luis Hermosillo LVN Amended: Links added.
[2022-12-30 07:13] LABS: BASOPHILS % (AUTO) 0.7 % (0.0-2.0); EOSINOPHILS # (AUTO) 0.2 K/uL (0-0.4); EOSINOPHILS % (AUTO) 2.8 % (0.0-4.0); HEMATOCRIT 23.3 % (36-48); HEMOGLOBIN 8.1 g/dL (12.0-16.0); LYMPHOCYTES # (AUTO) 1.9 K/uL (2.5-16.5); MEAN CORPUSCULAR HEMOGLOBIN 33 pg (27-31); MEAN CORPUSCULAR HGB CONC 35 g/dL (33-37); MEAN CORPUSCULAR VOLUME 95.6 fL (80-94); MONOCYTES # (AUTO) 0.8 K/uL (0.8-1.0); NEUTROPHILS # (AUTO) 2.6 K/uL (1.8-7.7); NEUTROPHILS % (AUTO) 47.5 % (42.2-75.2); PLATELET COUNT (AUTO) 227 K/uL (140-450); RED BLOOD CELL COUNT(AUTO) 2.44 MIL/uL (4.20-5.40); RED CELL DISTRIBUTION WIDTH 13.8 % (11.6-13.7); WHITE BLOOD COUNT (AUTO) 5.4 K/uL (4.8-10.8)
[2022-12-30 07:17] LABS: CREATININE 4.9 mg/dL (0.6-1.3)
--- NOTE | 2022-12-30 07:20 | NUR ---
ENDORSED PATIENT TO [facility] FOR CONTINUITY OF CARE. PATIENT IS STABLE.
--- NOTE | 2022-12-30 07:21 | NUR ---
RECEIVED REPORT FROM BOWL TOPPER NURSE, IFEANYI, FOR CONTINUITY OF CARE. PT IN BED ON HER PHONE AT THIS TIME. RESPIRATIONS ARE EVEN AND UNLABORED ON ROOM AIR. NO SIGNS OF DISTRESS NOTED. PT IS ALERT AND ORIENTED X4, ABLE TO VERBALIZE NEEDS, ABLE TO FOLLOW COMMANDS. PT IS YAKUT SPEAKING, OFFERED VOICE VP PATIENT TO PT, PT REFUSED. THIS NURSE SPEAKS Y[place], PT STATED SHE PREFERS TO SPEAK WITH NURSE IN YAKUT. ABD IS NONTENDER, NONDISTENDED WITH BOWEL SOUNDS PRESENT. PT IS CONTINENT OF BOWEL AND BLADDER. ABLE TO AMBULATE TO REST ROOM INDEPENDENTLY. PT HAS FULL ROM TO UPPER AND LOWER EXTREMITIES. PT HAS MADELYN CATH IN PLACE WHERE SHE RECEIVES DIALYSIS. SHE WAS DIALYZED 12/29/22 3L OUT. SKIN IS WARM, DRY, AND INTACT. CALL LIGHT WITHIN REACH. ALL SAFETY MEASURES IN PLACE.
--- NOTE | 2022-12-30 07:36 | NUR ---
RECEIVED PT ON ROOM AIR, SATURATION 97%. NO SOB, NO DISTRESS. PT REFUSED BREATHING TREATMENT AT THIS TIME. CALL LIGHT WITHIN REACH OF PATIENT. WILL CONTINUE TO MONITOR.
[2022-12-30 08:00] VITALS: BP 203/74; PULSE 73; PULSE 79; PULSE 80; RESP 18; RESP 20; TEMP 98.1; O2SAT 95; O2SAT 99
--- NOTE | 2022-12-30 08:00 | NUR ---
Patient's Plan of Care was discussed and reviewed with RN MDS: Layla
[2022-12-30 08:36] VITALS: O2SAT 97
[2022-12-30] MEDS: DOCUSATE SODIUM 100 MG GELCAP PO SCH (08:41)
[2022-12-30] MEDS: ASPIRIN 81 MG TAB.CHEW PO SCH (08:41)
[2022-12-30] MEDS: LOSARTAN 50 MG TAB PO SCH (08:41)
[2022-12-30] MEDS: carvediloL 12.5 MG TAB PO SCH (08:42)
--- NOTE | 2022-12-30 08:49 | NUR ---
ADMINISTERED SCHEDULED MEDICATION. EDUCATED PT ON ALL MEDS ADMINISTERED. ANSWERED ALL QUESTIONS. PT VERBALIZED UNDERSTANDING OF ALL INFORMATION PROVIDED.
[2022-12-30] MEDS ORDERED: ATORVASTATIN 80 MG TAB PO SCH (09:00)
[2022-12-30] MEDS: hydrALAZINE 10 MG TAB PO SCH ×2 (09:00→12:07)
[2022-12-30] MEDS ORDERED: NIFEdipine 60 MG TABER PO SCH (09:00)
[2022-12-30] MEDS ORDERED: ASPIRIN 81 MG TAB.CHEW PO SCH (09:00)
[2022-12-30] MEDS ORDERED: PANTOPRAZOLE 40 MG INJ VIAL IVP SCH (09:00)
[2022-12-30] MEDS ORDERED: CLOPIDOGREL 75 MG TAB PO SCH (09:00)
[2022-12-30] MEDS ORDERED: carvediloL 12.5 MG TAB PO SCH ×2 (09:05→21:00)
--- NOTE | 2022-12-30 10:13 | NUR ---
WENT TO SPEAK TO PT REGARDING ORDER FOR HYDRALAZINE. PT STATED SHE WAS VERY TIRED AND HAS NOT SLEPT IN A WHILE, PT ASKING NURSE TO LET HER SLEEP AT THIS TIME. PT REFUSING MEDICATION.
[2022-12-30] MEDS ORDERED: NIFE60TA39 PO (10:54)
[2022-12-30] MEDS ORDERED: LOSA-270 PO (10:54)
[2022-12-30] MEDS ORDERED: CLOP75TA55 PO (10:54)
[2022-12-30] MEDS ORDERED: LIP80 PO (10:54)
[2022-12-30] MEDS ORDERED: CARV12.52 PO (10:54)
[2022-12-30] MEDS ORDERED: APR10 PO (10:54)
[2022-12-30 12:00] VITALS: BP 202/75; PULSE 70; PULSE 72; RESP 18; TEMP 97.9; O2SAT 98
--- NOTE | 2022-12-30 13:00 | NUR ---
PT REFUSED 1300 BREATHING TREATMENT. CLEAR BS, NO DISTRESS NOTED,NO WHEEZE. CALL LIGHT WITHIN REACH OF PT. WILL CONTINUE TO MONITOR.
--- NOTE | 2022-12-30 14:27 | NUR ---
SPOKE WITH DR CRUZ TO DISCUSS PT MEDICATION REGIMEN. PER DR CRUZ, PT STATES SHE DOES NOT WANT TO BE TRANSFERRED TO [place], SHE WOULD LIKE TO GO HOME ONCE HER BP IS BETTER CONTROLLED. WENT TO RE CHECK PT BP, BP IS 150/55. PT STATES "THAT IS VERY LOW FOR ME. I AM USUALLY 180/70 OR SO. THATS FINE FOR ME". DR CRUZ MADE AWARE. DR WILL SPEAK WITH PT.
--- NOTE | 2022-12-30 15:11 | NUR ---
PT INFORMED STAFF THAT SHE DOES NOT WANT TO BE TRANSFERED TO [facility]. INTERNAL CONTROL MANAGER MADE AWARE. DR HOOD MADE AWARE. PER DR HOOD, "SHE NEEDS TRANSFER TO THE OTHER FACILITY FOR FURTHER CARDIAC CONTROL. BLOOD PRESSURE NEEDS TO BE IN THE 140S, [facility] CAN DC HER WHEN SHE GOES THERE IF APPROPRIATE". INFORMED DR HOOD THAT PT IS REFUSING TO GO TO [facility]. PER DR HOOD, "SHE CAN SIGN AMA IF SHE DOES NOT AGREE WITH [facility] PLAN". INTERNAL CONTROL MANAGER MADE AWARE.
--- NOTE | 2022-12-30 15:20 | NUR ---
SPOKE WITH PT REGARDING WHAT DR HOOD HAD STATED. ALSO INFORMED PT THAT DR SUGGESTED SHE GO TO [facility] FOR BP CONTROL. REMINDED PT THAT HER BP HAS BEEN IN THE 200S TODAY AND NEEDED TO BE IN THE 140S PER MD. PT AGREED TO TRANSFER TO [facility]. AWAITING CALL FROM [facility] TO CONFIRM BED AND TRANSPORTATION.
[2022-12-30 16:00] VITALS: BP 155/59; PULSE 71; PULSE 73; RESP 18; TEMP 98.3; O2SAT 97
--- NOTE | 2022-12-30 16:47 | NUR ---
RECEIVED CALL FROM DELORIS, WORKING WITH [employer]LO[facility] [employer] AT [place]. PER DELORIS, PT HAS BEEN ASSIGNED BED AT [facility]. DELORIS ASKING FOR RAPID TEST FOR PT, AND STATES ONCE SHE HAS TRANSPORTATION SET UP, SHE WILL CALL WITH BED NUMBER, TIME FOR CHECKROOM CHIEF AND PHONE NUMBER TO GIVE REPORT.
--- NOTE | 2022-12-30 17:30 | NUR ---
RECEIVED A CALL FROM [facility] AND GAVE BED TELE ROOM 517, REPORT GIVEN TO LESLI RN . ETA FOR [facility] IS 1930. WILL ENDORSE TO [facility] DELACRU[facility].
--- NOTE | 2022-12-30 18:00 | NUR ---
WENT OVER DISCHARGE PAPERWORK WITH PT. ANSWERED ALL QUESTIONS. PT SIGNED ALL PAPERWORK. AWAITING TRANSPORTATION FOR TRANSFER TO [facility].
--- NOTE | 2022-12-30 19:28 | NUR ---
ENDORSED PATIENT TO [facility] FOR TRANSFER OF CARE. PATIENT IS AWAKE AND STABLE. A&O4. VSS. RESPIRATIONS EVEN AND UNLABORED WITH NO APPARENT S/SX OF ACUTE DISTRESS. TOLERATING ROOM AIR WELL AT 94%. DISCHARGE PAPERWORK SIGNED. TELE MONITOR REMOVED. IV SITE VERIFIED ON RAC 20G AND [place] CATH ON RIGHT UPPER CHEST WALL. ALL PATIENT BELONGINGS WITH PATIENT. CHARGE NURSE AND MT AWARE PATIENT LEFT WITH [facility] AT 1928.
[2022-12-30] MEDS ORDERED: hydrALAZINE 25 MG TAB PO SCH (21:00)
[2022-12-31] MEDS ORDERED: NIFEdipine 90 MG TABER PO SCH (09:00)
== END 2022-12-30 19:28 | DRG 280 ==
LOC: MED 18:18 → MIC 22:35 → MTU 12-29 19:00
PROVIDERS: ADMIT Student in an Organized Health Care Education/Training Program; ATTEND Student in an Organized Health Care Education/Training Program
PROC: 5A09357 Assistance with Respiratory Ventilation, Less than 24 Consecutive Hours, Continuous Positive Airway Pressure (ICD-10-PCS; 2022-12-28)
PROC: 5A1D70Z Performance of Urinary Filtration, Intermittent, Less than 6 Hours Per Day (ICD-10-PCS; principal; 2022-12-29)
PROC: 5A1D70Z Performance of Urinary Filtration, Intermittent, Less than 6 Hours Per Day (ICD-10-PCS; 2022-12-30)
DX: I13.2 Hypertensive heart and chronic kidney disease with heart failure and with stage 5 chronic kidney disease, or end stage renal disease (principal); I50.43 Acute on chronic combined systolic (congestive) and diastolic (congestive) heart failure; I21.4 Non-ST elevation (NSTEMI) myocardial infarction; J96.01 Acute respiratory failure with hypoxia; N18.6 End stage renal disease; I16.1 Hypertensive emergency; E87.1 Hypo-osmolality and hyponatremia; F41.9 Anxiety disorder, unspecified; R00.0 Tachycardia, unspecified; I25.5 Ischemic cardiomyopathy; E87.5 Hyperkalemia; Z20.822 Contact with and (suspected) exposure to COVID-19; E11.22 Type 2 diabetes mellitus with diabetic chronic kidney disease; D63.1 Anemia in chronic kidney disease; I25.10 Atherosclerotic heart disease of native coronary artery without angina pectoris; E78.5 Hyperlipidemia, unspecified; Z99.2 Dependence on renal dialysis; Z95.1 Presence of aortocoronary bypass graft; Z79.82 Long term (current) use of aspirin; Z98.891 History of uterine scar from previous surgery
CPT/HCPCS: 36415; 71045; 78582; 80048; 80053; 82140; 82150; 82948; 83036; 83605; 83690; 83735; 83880; 84100; 84439; 84443; 84484; 85025; 85379; 85610; 85730; 87040; 87081; 93005; 94640; 94660; 96374; 96375; 99291; 99292; C9113; J0360; J1644; J1815; J2270; J2405; J3490; J7613; J7644; Q5106